=== PATIENT | female | born 1995 | race Caucasian/White ===

== ENCOUNTER 2017-03-06 09:20 | Emergency (ER) | payer BC ==
[2017-03-06] MEDS ORDERED: NS 0.9% 1000 ML* 1,000 ML IV ONE (09:58)
[2017-03-06] MEDS ORDERED: Ketorolac INJ* 30 MG/ML 1 ML VIAL IV PUSH ONE (09:58)
--- NOTE | 2017-03-06 10:03 | ED ---
Abdominal Pain/Female - HPI Summary HPI Summary: 21F presents with pelvic pain today that caused her to pass out. She states she woke up and went to the bathroom and started to have extreme suprapelvic pain. She has never had this pain before. She denies any dysuria, hematuria flank pain , vaginal discharge. When asked if she is she states she is unsure. Her last menstrual period was last month. She denies any nausea, vomiting, diarrhea. She states she felt lightheaded and was in a lot of pain so she states she laid down on the floor and that her fiance shook her awake as she passed out. She also states she has a history of unintentional weight lost over the past couple months and has lost 50 pounds. - History of Current Complaint Chief Complaint: EDAbdPain Stated Complaint: PELVIC PAIN/SYNCOPE Time Seen by Provider: 03/06/17 09:42 Pain Intensity: 5 Allergies/Adverse Reactions: Allergies Allergy/AdvReac Type Severity Reaction Status Date / Time No Known Allergies Allergy Verified 03/06/17 10:42 PMH/Surg Hx/FS Hx/Imm Hx Endocrine/Hematology History: Denies: Hx Thyroid Disease Cardiovascular History: Denies: Hx Hypertension Infectious Disease History: Denies: Traveled Outside the [place] in Last 30 Days - Family History Known Family History: Positive: Other - ovarian CA - Social History Alcohol Use: None Substance Use Type: Reports: None Smoking Status (MU): Never Smoked Tobacco Review of Systems Negative: Fever Negative: Chest Pain Negative: Shortness Of Breath Positive: Abdominal Pain - pelvic. Negative: Vomiting, Diarrhea, Nausea Negative: dysuria, flank pain All Other Systems Reviewed And Are Negative: Yes Physical Exam Triage Information Reviewed: Yes Vital Signs On Initial Exam: Initial Vitals Temp Pulse Resp BP Pulse Ox 97.9 F 76 16 126/69 100 03/06/17 09:35 03/06/17 09:35 03/06/17 09:35 03/06/17 09:35 03/06/17 09:35 Vital Signs Reviewed: Yes Appearance: Positive: Well-Appearing Skin: Positive: Warm, Dry Head/Face: Positive: Normal Head/Face Inspection Eyes: Positive: Normal, Conjunctiva Clear Respiratory/Lung Sounds: Positive: Clear to Auscultation, Breath Sounds Present Cardiovascular: Positive: Normal, RRR Abdomen Description: Positive: Soft, Other: - moderate suprapublic pain, no rebound pain Bowel Sounds: Positive: Present - [place] Coma Scale Coma Scale Total: 15 Diagnostics - Vital Signs Vital Signs Temp Pulse Resp BP Pulse Ox 03/06/17 09:55 65 100 03/06/17 09:52 107/79 03/06/17 09:48 98.7 F 65 18 107/79 100 03/06/17 09:35 97.9 F 76 16 126/69 100 - Laboratory Result Diagrams: 03/06/17 10:10 03/06/17 10:10 Lab Statement: Any lab studies that have been ordered have been reviewed, and results considered in the medical decision making process. - Ultrasound No standard instances Ultrasound Interpretation: Positive (See Comments) - IMPRESSION: Enlarged right ovary with a complex right ovarian cyst measuring up to 3.0 x 1.8 x 2.4 cm. Myomatous changes of the uterus are noted. Ultrasound Interpretation Completed By: Radiologist - EKG No standard instances Cardiac Rate: NL EKG Rhythm: Sinus Rhythm EKG Interpretation: normal sinus rhythm Abdominal Pain Fem Course/Dx - Course Course Of Treatment: 21F presents with pelvic pain today that start all of a sudden this morning. Never had this pain before. denies any vaginal discharge, dysuria, hematuria. denies any history of STDs. no n/v/d. states pain caused her to pass out but she was already on the floor at the time the occurance due to the pain. She states she also felt sweaty at the time. She took dose of advil this morning and states helped with pain. also history of unintentional weight lost this month. denies any fevers. on exam moderate tenderness to suprapubic region. labs: wbc: 11.3, crp 8, hcg <.6. got u/s: enlarged right ovary with complex right ovarian cyst, myomatous changes of uterus. ekg normal. u/s normal. explained syncope likely due to vasovagal due to pain. explained has ovarian cyst and to follow up with obgyn. patient understands and agrees with plan. - Diagnoses Differential Diagnosis: Positive: Ovarian Cyst, Urinary Tract Infection, Other - ovarian torison Provider Diagnoses: Ovarian cyst, Syncope Discharge - Discharge Plan Condition: Good Disposition: HOME Patient Education Materials: Ovarian Cyst (ED) Referrals: Vladislav Mauro MD [Medical Doctor] - Chucho Leroy MD [Primary Care Provider] - Additional Instructions: Take Tylenol or ibuprofen every 6 hours for pain Stand up slowly to prevent passing out Follow up with obgyn Return to ED if develop any new or worsening symptoms
[2017-03-06 10:27] LABS: Hematocrit 46 % (35-47); Hemoglobin 15.1 g/dl (12.0-16.0); Mean Corpuscular HGB Conc 33 g/dl (31-36); Mean Corpuscular Hemoglobin 27 pg (27-31); Mean Corpuscular Volume 83 fL (80-97); Mean Platelet Volume 8 um3 (7.4-10.4); Red Blood Count 5.54 10^6/ul (4.0-5.4); Red Cell Distribution Width 14 % (10.5-15); White Blood Count 11.3 10^3/ul (3.5-10.8)
[2017-03-06 10:59] LABS: TSH (Thyroid Stimulating Horm) 1.24 mcIU/mL (0.34-5.60)
[2017-03-06 11:00] LABS: ALT 24 U/L (7-52); AST 17 U/L (13-39); Albumin 4.6 g/dL (3.2-5.2); Alkaline Phosphatase 58 U/L (34-104); Anion Gap 6 mmol/L (2-11); BUN/Creatinine Ratio 11.1 (8-20); Blood Urea Nitrogen 8 mg/dL (6-24); CO2 Carbon Dioxide 27 mmol/L (22-32); Calcium 9.6 mg/dL (8.6-10.3); Chloride 101 mmol/L (101-111); EGFR African American 134.2 (>60); EGFR Non-African American 104.3 (>60); Globulin 3.3 g/dL (2-4); Glucose 96 mg/dL (70-100); Lipase 17 U/L (11.0-82.0); Potassium 4.1 mmol/L (3.5-5.0); Sodium 134 mmol/L (133-145); Total Protein 7.9 g/dL (6.4-8.9)
--- NOTE | 2017-03-06 11:48 | RAD ---
Indication: Pelvic pain. Real-time sonography of the pelvis was performed. The study was performed utilizing endovaginal technique. The uterus measures 6.3 cm in length x 3.1 cm AP x 4.2 cm in width. The endometrial echo measures 5.5 cm. The anterior body of the uterus appears to BE heterogeneous consistent with myomatous changes although no discrete myomas are identified. The right ovary measures 5.4 x 2.6 x 4.5 cm. Right ovarian cyst measures 3.0 x 1.8 x 2.4 cm. The left ovary measures 3.5 x 2.1 x 3.2 cm. There is a left ovarian cyst measuring 2.1 x 1.9 x 2.3 cm. Doppler interrogation demonstrates flow in both ovaries. Moderate amount of free fluid is noted. IMPRESSION: Enlarged right ovary with a complex right ovarian cyst measuring up to 3.0 x 1.8 x 2.4 cm. Myomatous changes of the uterus are noted.
[2017-03-06] MEDS ORDERED: oxyCODONE/Acetamin 5/325 MG* TAB PO ONE (11:50)
[2017-03-06 11:58] VITALS: BP 120/75
[2017-03-06 12:35] LABS: Urine Bilirubin Negative (Negative); Urine Glucose Negative (Negative); Urine Nitrite Negative (Negative)
== END 2017-03-06 12:54 | disposition home or self-care (01) ==
LOC: ED 09:20
DX: N83.202 Unspecified ovarian cyst, left side (principal); N83.201 Unspecified ovarian cyst, right side; R55 Syncope and collapse; R63.4 Abnormal weight loss
CPT/HCPCS: 36415; 76830; 80053; 81003; 83690; 84443; 84702; 85025; 86141; 93005; 96360; 96374; 99283; A9270-GY; J1885

== ENCOUNTER 2017-04-02 09:15 | Emergency (ER) | payer BC ==
[2017-04-02 09:28] VITALS: BP 128/79
[2017-04-02] MEDS ORDERED: Fluorescein Sodium TOPICAL* 1 MG TEST OPHTHALMIC ONE (09:36)
[2017-04-02] MEDS ORDERED: Tetracaine 0.5% OPTH.SOL 4 ML* 1 DROP BTL BOTH EYES ONE (09:36)
[2017-04-02] MEDS ORDERED: Eye Irrigation Solution 30 ML BOTTLE RIGHT EYE ONE (09:36)
--- NOTE | 2017-04-02 10:29 | UC ---
Eye Complaint HPI - HPI Summary HPI Summary: Significant R eye pain and light sensitivity since yesterday, wears contacts but they are only fpc through their life. Has never slept in contacts, no recent grinding, welding, or overhead work. Denies fever or FB sensation. Lots of pain and tearing with focusing and light. No hx of eye surgery. - History of Current Complaint Chief Complaint: UCEye Stated Complaint: EYE COMPLAINT Time Seen by Provider: 04/02/17 10:03 Hx Obtained From: Patient Hx Last Menstrual Period: 02/2017 ?: No Onset/Duration: Gradual Onset, Lasting Hours Timing: Constant Severity Initially: Mild Severity Currently: Severe Location of Injury: Other Character: Dull Aggravating Factor(s): Light Alleviating Factor(s): Darkness Associated Signs And Symptoms: Positive: Drainage (Clear) - Risk Factors Penetrating Injury Risk Factor: Negative - Allergies/Home Medications Allergies/Adverse Reactions: Allergies Allergy/AdvReac Type Severity Reaction Status Date / Time No Known Allergies Allergy Verified 04/02/17 09:27 Home Medications: Home Medications NK [No Home Medications Reported] 04/02/17 [History Confirmed 04/02/17] PMH/Surg Hx/FS Hx/Imm Hx Endocrine History Of: Denies: Thyroid Disease Cardiovascular History Of: Denies: Hypertension - Surgical History Surgical History: None - Family History Known Family History: Positive: Other - ovarian CA - Social History Lives: Alone Alcohol Use: None Substance Use Type: None Smoking Status (MU): Never Smoked Tobacco Review of Systems Constitutional: Negative Skin: Negative Eyes: Drainage, Eye Redness, Photophobia ENT: Negative Respiratory: Negative Cardiovascular: Negative Gastrointestinal: Negative Genitourinary: Negative Motor: Negative Neurovascular: Negative Musculoskeletal: Negative Neurological: Negative Psychological: Negative All Other Systems Reviewed And Are Negative: Yes Physical Exam Triage Information Reviewed: Yes Appearance: Well-Appearing, Well-Nourished, Pain Distress Vital Signs: Initial Vital Signs Temp 97.9 F 04/02/17 09:20 Pulse 67 04/02/17 09:20 Resp 14 04/02/17 09:20 BP 128/79 04/02/17 09:20 Pulse Ox 100 04/02/17 09:20 Eye Exam: Other - R pupil reactive to light but with significant pain Eyes: Positive: Conjunctiva Inflamed - R ENT: Positive: Normal ENT inspection, Hearing grossly normal, Pharynx normal, Nasal drainage. Negative: Tonsillar swelling, Tonsillar exudate Dental Exam: Normal Neck exam: Normal Neck: Positive: Supple, Nontender, No Lymphadenopathy Respiratory Exam: Normal Respiratory: Positive: Chest non-tender, Lungs clear, Normal breath sounds, No respiratory distress, No accessory muscle use Cardiovascular Exam: Normal Cardiovascular: Positive: RRR, No Murmur Musculoskeletal Exam: Normal Neurological Exam: Normal Neurological: Positive: Alert Psychological Exam: Normal Skin Exam: Normal Eye Complaint Course/Dx - Differential Dx/Diagnosis Provider Diagnoses: R eye photophobia. R eye pain Discharge - Discharge Plan Condition: Stable Disposition: HOME Patient Education Materials: Photophobia (ED) Forms: *Work Release Referrals: Chucho Bill MD [Medical Doctor] - As Soon As Possible Chucho Leroy MD [Primary Care Provider] - 2 Weeks Additional Instructions: As we discussed, your eye symptoms need more in-depth testing with an cloud engineer today. Please follow up with Dr. Bill's office.
== END 2017-04-02 10:38 | disposition home or self-care (01) ==
LOC: UCEAST 09:15
DX: H53.141 Visual discomfort, right eye (principal); H57.11 Ocular pain, right eye
CPT/HCPCS: 99212; A9270-GY; G0463

== ENCOUNTER → 2017-08-25 14:54 | Emergency (ER) | payer BC ==
[~2017-08-25 14:54] MED LIST: Ibuprofen TAB* 400 MG PO ONE; Sulfamethox/Trimethoprim DS 800/160* TAB PO ONE
[2017-08-25 15:05] VITALS: BP 121/74
[2017-08-25 16:20] LABS: Hematocrit 41 % (35-47); Mean Corpuscular HGB Conc 34 g/dl (31-36); Mean Corpuscular Hemoglobin 28 pg (27-31); Mean Corpuscular Volume 82 fL (80-97); Mean Platelet Volume 7 um3 (7.4-10.4); Red Blood Count 4.98 10^6/ul (4.0-5.4); Red Cell Distribution Width 13 % (10.5-15); White Blood Count 16.1 10^3/ul (3.5-10.8)
[2017-08-25 16:32] LABS: ALT 13 U/L (7-52); AST 14 U/L (13-39); Albumin 4.4 g/dL (3.2-5.2); Alkaline Phosphatase 55 U/L (34-104); Anion Gap 9 mmol/L (2-11); BUN/Creatinine Ratio 12.9 (8-20); Blood Urea Nitrogen 11 mg/dL (6-24); CO2 Carbon Dioxide 23 mmol/L (22-32); Calcium 9.5 mg/dL (8.6-10.3); Chloride 104 mmol/L (101-111); EGFR African American 109.7 (>60); EGFR Non-African American 85.3 (>60); Globulin 3.1 g/dL (2-4); Glucose 102 mg/dL (70-100); Potassium 3.3 mmol/L (3.5-5.0); Sodium 136 mmol/L (133-145); Total Protein 7.5 g/dL (6.4-8.9)
[2017-08-25 17:05] LABS: TSH (Thyroid Stimulating Horm) 1.23 mcIU/mL (0.34-5.60)
--- NOTE | 2017-08-25 17:23 | RAD ---
HISTORY: Head injury COMPARISONS: None TECHNIQUE: Multiple contiguous axial CT scans were obtained of the head without intravenous contrast. FINDINGS: HEMORRHAGE/INFARCT: There is no hemorrhage or acute infarct. MASSES/SHIFT: There is no mass or shift. EXTRA-AXIAL SPACES: There are no extra-axial fluid collections. SULCI AND VENTRICLES: The sulci and ventricles are normal in size and position for the patient's stated age. CEREBRUM: There are no focal parenchymal abnormalities. BRAINSTEM: There are no focal parenchymal abnormalities. CEREBELLUM: There are no focal parenchymal abnormalities. VESSELS: The vessels are grossly normal. PARANASAL SINUSES: The paranasal sinuses are clear. ORBITS: The orbits are unremarkable. BONES AND SOFT TISSUE: No bone or soft tissue abnormalities are noted. OTHER: None IMPRESSION: NO ACUTE INTRACRANIAL PATHOLOGY.
[2017-08-25 18:13] LABS: Urine Bacteria 1+ (Absent); Urine Bilirubin Negative (Negative); Urine Glucose Negative (Negative); Urine Nitrite Negative (Negative)
--- NOTE | 2017-08-31 12:35 | ED ---
Nela Campa SooYoung, scribed for Tom Retana MD on 08/25/17 at 1542 . Syncope/Near Syncope - HPI Summary HPI Summary: A 22 y/o F presents to ED BIBA after syncopal episode. Pt was waiting in line at the [employer] stand when she suddenly said "something's wrong" to her fiance and proceeded to pass out. Per fiance, she was stiff as a board, her head hit the ground hard, and her eyes rolled back into her head. Associated sx : JOHNSON, posterior head trauma, mild nausea. Denies neck pain, abd pain, rash, SOB , CP, v/d. Denies recent stress or excess stimuli. Pt not on BC. - History Of Current Complaint Chief Complaint: EDSyncope Hx Obtained From: Patient, Family/Surgical First Assistant Onset/Duration: Sudden Onset, Resolved Timing: Frequency Of Episodes - 1x Context: Witnessed Activity At Onset: At Rest Associated Head Trauma: Yes Associated Signs And Symptoms: Headache, Other - pos: nausea - Allergies/Home Medications Allergies/Adverse Reactions: Allergies Allergy/AdvReac Type Severity Reaction Status Date / Time No Known Allergies Allergy Verified 04/02/17 09:27 PMH/Surg Hx/FS Hx/Imm Hx Previously Healthy: Yes Endocrine/Hematology History: Denies: Hx Thyroid Disease Cardiovascular History: Denies: Hx Hypertension Infectious Disease History: Yes Infectious Disease History: Denies: Traveled Outside the [place] in Last 30 Days - Family History Known Family History: Positive: Cardiac Disease, Other - ovarian CA - Social History Occupation: Student Lives: Alone Alcohol Use: None Hx Substance Use: No Substance Use Type: Reports: None Hx Tobacco Use: No Smoking Status (MU): Never Smoked Tobacco Review of Systems Negative: Fever, Chills Negative: Erythema Negative: Sore Throat Negative: Chest Pain Negative: Shortness Of Breath, Cough Positive: Nausea. Negative: Abdominal Pain, Vomiting Negative: dysuria, hematuria Negative: Myalgia, Edema Neurological: Other - pos: head trauma; neg: dizziness Positive: Headache, Syncope All Other Systems Reviewed And Are Negative: Yes Physical Exam - Summary Physical Exam Summary: Constitutional: Well-developed, Well-nourished, Alert. (-) Distressed Skin: Warm, Dry HENT: Scalp hematoma on L occipital, parietal Eyes: Conjunctiva normal Neck: Musculoskeletal ROM normal neck. (-) JVD, (-) Stridor, (-) Tracheal deviation Cardio: Rhythm regular, rate normal, Heart sounds normal; Intact distal pulses; The pedal pulses are 2+ and symmetric. Radial pulses are 2+ and symmetric. (-) Murmur Pulmonary/Chest wall: Effort normal. (-) Respiratory distress, (-) Wheezes, (-) Rales Abd: Soft, (-) Tenderness, (-) Distension, (-) Guarding, (-) Rebound Musculoskeletal: (-) Edema Lymph: (-) Cervical adenopathy Neuro: Alert, Oriented x3 Psych: Mood and affect Normal Triage Information Reviewed: Yes Vital Signs On Initial Exam: Initial Vitals Temp Pulse Resp BP Pulse Ox 98 F 96 18 121/74 98 08/25/17 15:00 08/25/17 15:00 08/25/17 15:00 08/25/17 15:00 08/25/17 15:00 Vital Signs Reviewed: Yes - [place] Coma Scale Coma Scale Total: 15 Diagnostics - Vital Signs Vital Signs Temp Pulse Resp BP Pulse Ox 08/25/17 15:39 97 08/25/17 15:32 89 94 08/25/17 15:00 98 F 96 18 121/74 98 - Laboratory Result Diagrams: 08/25/17 16:00 08/25/17 16:00 Lab Statement: Any lab studies that have been ordered have been reviewed, and results considered in the medical decision making process. - CT BRAIN CT CT Interpretation: No Acute Changes - IMPRESSION: No acute intracranial pathology. ED physician has reviewed this radiology report and agrees. CT Interpretation Completed By: Radiologist - EKG 1543 Cardiac Rate: Tachycardia - 102bpm EKG Rhythm: Sinus Tachycardia ST Segment: Normal - no STEMI Re-Evaluation - Re-Evaluation 1 Re-Evaluation Time: 18:22 Change: Improved Comment: Discussing plans to dispo. Pt agrees, voiced understanding. Course/Dx Course Of Treatment: A 22 y/o F presents to ED BIBA after syncopal episode. Pt was waiting in line at the [employer] stand when she suddenly said "something' s wrong" to her fiance and proceeded to pass out. Per fiance, she was stiff as a board, her head hit the ground hard, and her eyes rolled back into her head. Associated sx: JOHNSON, posterior head trauma, mild nausea. Denies neck pain, abd pain, rash, SOB, CP, v/d. Denies recent stress or excess stimuli. Pt not on BC. Bloodwork is without significant abnormalities. Brain CT is negative. UA results are positive for infection. Pt tolerated PO challenge, and is feeling better. Will D/C home with bactrim, f/u with PCP. - Diagnoses Provider Diagnoses: Syncope, UTI (urinary tract infection), Scalp hematoma Discharge - Discharge Plan Condition: Stable Disposition: HOME Prescriptions: Sulfamethox/Trimethoprim DS* [Bactrim DS 800/160 TAB*] 1 tab PO BID #14 tab Patient Education Materials: Sulfamethoxazole/Trimethoprim (By mouth), Syncope (ED), Urinary Tract Infection in Women (ED), Contusion in Adults (ED) Referrals: Chucho Leroy MD [Primary Care Provider] - 2 Days Additional Instructions: Follow up with your primary care provider in 2 to 3 days. Please return to the ED if you experience new or worsening symptoms. The documentation as recorded by the Nela gonzalez SooYoung accurately reflects the service I personally performed and the decisions made by , Tom Retana MD.
== END | disposition home or self-care (01) ==
LOC: ED 14:54
DX: R55 Syncope and collapse (principal); N39.0 Urinary tract infection, site not specified; S00.03XA Contusion of scalp, initial encounter; W19.XXXA Unspecified fall, initial encounter; Y92.9 Unspecified place or not applicable
CPT/HCPCS: 36415; 70450; 80053; 81003; 81015; 83605; 83735; 84443; 84702; 85025; 87086; 93005; 99282; A9270-GY

== ENCOUNTER 2018-01-07 11:58 | Emergency (ER) | payer BC ==
[2018-01-07 12:18] VITALS: BP 122/81
--- NOTE | 2018-01-07 12:29 | UC ---
Dental HPI - HPI Summary HPI Summary: 22F presents with dental pain for past couple days. She has an appointment with her dentist in a week. She denies any fever. She denies any pain or swelling around eyes. She denies any chest pain or SOB. Her dentist told her to come here as may need antibiotics as can not get her any sooner. She has been taking Tylenol and ibuprofen for pain without relief. pain is 8/10. - History of Current Complaint Chief Complaint: UCDentalProblem Stated Complaint: DENTAL COMPLAINT Time Seen by Provider: 01/07/18 12:19 Hx Last Menstrual Period: 12/25/17 Pain Intensity: 9 - Allergies/Home Medications Allergies/Adverse Reactions: Allergies Allergy/AdvReac Type Severity Reaction Status Date / Time No Known Allergies Allergy Verified 01/07/18 12:18 PMH/Surg Hx/FS Hx/Imm Hx Endocrine History: Other Other Endocrine History: no DM Cardiovascular History: Other Other Cardiovascular History: no HTN - Surgical History Surgical History: None Surgery Procedure, Year, and Place: denies - Family History Known Family History: Positive: Cardiac Disease, Other - ovarian CA - Social History Alcohol Use: None Substance Use Type: None Smoking Status (MU): Never Smoked Tobacco Review of Systems Constitutional: Negative ENT: Dental Pain Respiratory: Negative Cardiovascular: Negative All Other Systems Reviewed And Are Negative: Yes Physical Exam Triage Information Reviewed: Yes Appearance: Well-Appearing Vital Signs: Initial Vital Signs Temp 98.4 F 01/07/18 12:13 Pulse 68 01/07/18 12:13 Resp 16 01/07/18 12:13 BP 122/81 01/07/18 12:13 Pulse Ox 100 01/07/18 12:13 Eye Exam: Normal ENT: Positive: Normal ENT inspection, Pharynx normal, TMs normal Dental: Positive: Percussion Tenderness @ - 7. Negative: Gross Decay/Caries @, Dental Fracture @, Abscess @ Neck: Positive: Supple, Nontender, No Lymphadenopathy Respiratory: Positive: Lungs clear, Normal breath sounds Cardiovascular: Positive: RRR Abdomen Description: Positive: Nontender, Soft Bowel Sounds: Positive: Present Musculoskeletal Exam: Normal Neurological Exam: Normal Psychological Exam: Normal Skin Exam: Normal Dental Complaint Course/Dx - Course Course Of Treatment: 22F presents with dental pain for past couple days. She has an appointment with her dentist in a week. She denies any fever. She denies any pain or swelling around eyes. She denies any chest pain or SOB. Her dentist told her to come here as may need antibiotics as can not get her any sooner. She has been taking Tylenol and ibuprofen for pain without relief. pain is 8/10. on exam has percussion tenderness tooth 7, no abscess felt. will place on PCN. will give short course of pain medication. patient understand and agrees with plan. - Differential Dx/Diagnosis Differential Diagnosis/Dx: Dental Abscess, Dental Caries, Fractured Tooth, Gingivitis Provider Diagnoses: dental infection Discharge - Discharge Plan Condition: Good Disposition: HOME Prescriptions: oxyCODONE/Acetamin 5/325 MG* [Percocet 5/325 TAB*] 1 tab PO Q6H PRN #8 tab MDD 4 PRN Reason: Pain Penicillin VK TAB* [Penicillin VK 250 mg Tab*] 500 mg PO QID #28 tab Patient Education Materials: Toothache (ED) Referrals: Chucho Leroy MD [Primary Care Provider] - Additional Instructions: Take antibiotics: 4 times a day for 7 days Use ibuprofen every 6 hours and narcotic for break through pain at night every 6 hours Avoid hard, crunchy food until seen by dentist Follow up with dentist as soon as possible Return to ED if develop fever, shortness of breath, pain with eye movement or swelling around eye Images Dental: 1 - pain
== END 2018-01-07 12:38 | disposition home or self-care (01) ==
LOC: UCEAST 11:58
DX: K04.7 Periapical abscess without sinus (principal)
CPT/HCPCS: 99212; G0463

== ENCOUNTER 2018-01-30 15:47 | Emergency (ER) | payer BC ==
[2018-01-30 16:00] VITALS: BP 139/87
[2018-01-30] MEDS ORDERED: Ondansetron ODT TAB* 4 MG PO ONE (16:04)
--- NOTE | 2018-01-30 16:05 | ED ---
Influenza-Like Illness - HPI Summary HPI Summary: 22-year-old female presents with cough for the past week. She admits to sinus congestion that started 4 days ago. She states the congestion feels like a pressure. She denies any sore throat. She admits to shortness of breath and chest tightness when she coughs. She admits to generalized abdominal pain nausea vomiting diarrhea. She denies any fevers. She states she has not been able to keep anything down. He states he feels dehydrated. She has no medical conditions. No one else is sick. She has been trying Tylenol for her symptoms without relief. - History of Current Complaint Chief Complaint: UCRespiratory Time Seen by Provider: 01/30/18 15:56 - Allergy/Home Medications Allergies/Adverse Reactions: Allergies Allergy/AdvReac Type Severity Reaction Status Date / Time No Known Allergies Allergy Verified 01/30/18 15:53 Home Medications: Home Medications Acetaminophen [Tylenol Extra Strength] 500 mg PO Q8HR PRN 01/30/18 [History Confirmed 01/30/18] PMH/Surg Hx/FS Hx/Imm Hx Endocrine/Hematology History: Denies: Hx Diabetes, Hx Thyroid Disease Cardiovascular History: Denies: Hx Hypertension Respiratory History: Denies: Hx Asthma, Hx Chronic Obstructive Pulmonary Disease (COPD) GI History: Denies: Hx Ulcer - Surgical History Surgery Procedure, Year, and Place: denies Infectious Disease History: No Infectious Disease History: Denies: Hx Hepatitis, Hx Human Immunodeficiency Virus (HIV), Traveled Outside the [place] in Last 30 Days - Family History Known Family History: Positive: Cardiac Disease, Other - ovarian CA - Social History Alcohol Use: None Hx Substance Use: No Substance Use Type: Reports: None Hx Tobacco Use: No Smoking Status (MU): Never Smoked Tobacco Review of Systems Negative: Fever Positive: Chest Pain - with cough Positive: Shortness Of Breath - with cough, Cough Positive: Abdominal Pain, Vomiting, Diarrhea, Nausea All Other Systems Reviewed And Are Negative: Yes Physical Exam Triage Information Reviewed: Yes Vital Signs On Initial Exam: Initial Vitals Temp Pulse Resp BP Pulse Ox 97.9 F 109 18 139/87 99 01/30/18 15:55 01/30/18 15:55 01/30/18 15:55 01/30/18 15:55 01/30/18 15:55 Vital Signs Reviewed: Yes Appearance: Positive: Ill-Appearing Skin: Positive: Warm, Dry Head/Face: Positive: Normal Head/Face Inspection Eyes: Positive: Normal, EOMI, KEENAN, Conjunctiva Clear ENT: Positive: Normal ENT inspection, Pharynx normal, TMs normal, Sinus tenderness Neck: Positive: Supple, Nontender, No Lymphadenopathy Respiratory/Lung Sounds: Positive: Clear to Auscultation, Breath Sounds Present Cardiovascular: Positive: Normal, RRR Abdomen Description: Positive: Soft, Other: - mild diffuse tenderness Bowel Sounds: Positive: Present Musculoskeletal: Positive: Normal Neurological: Positive: Normal Psychiatric: Positive: Normal Diagnostics - Vital Signs Vital Signs Temp Pulse Resp BP Pulse Ox 01/30/18 15:55 97.9 F 109 18 139/87 99 - Laboratory Lab Statement: Any lab studies that have been ordered have been reviewed, and results considered in the medical decision making process. Re-Evaluation - Re-Evaluation First Eval Re-Evaluation Time: 16:44 Change: Improved Comment: feeling less nauseous with zofrna Flu Symptom Course/Dx - Course Course Of Treatment: 22-year-old female presents with cough for the past week. She admits to sinus congestion that started 4 days ago. She states the congestion feels like a pressure. She denies any sore throat. She admits to shortness of breath and chest tightness when she coughs. She admits to generalized abdominal pain nausea vomiting diarrhea. She denies any fevers. She states she has not been able to keep anything down. He states he feels dehydrated. She has no medical conditions. No one else is sick. She has been trying Tylenol for her symptoms without relief. on exam lungs CTA. mild diffuse tenderness abdomen. due to sinus congestion only being for 4 days likely still viral. flu neg. will treat with flonase, inhaler and zofran for symptomatic relief. will have follow up with primary about blood pressure as is elevated at this time. patient understand and agrees with plan. - Diagnoses Differential Diagnosis/HQI/PQRI: Positive: Influenza, Pneumonia, Upper Respiratory Infection Provider Diagnoses: Upper respiratory infection Discharge - Discharge Plan Condition: Good Disposition: HOME Prescriptions: Albuterol HFA INHALER* [Ventolin HFA Inhaler*] 1 puff INH Q6H PRN #1 mdi PRN Reason: Cough Fluticasone NASAL SPRAY 50MCG* [Flonase NASAL SPRAY 50MCG*] 2 spray BOTH NARES DAILY #1 btl Ondansetron ODT TAB* [Zofran 4 MG Odt TAB*] 4 mg PO Q6H PRN #20 tab.odt PRN Reason: Nausea Patient Education Materials: Upper Respiratory Infection (ED) Referrals: Chucho Leroy MD [Primary Care Provider] - Additional Instructions: Alternate Tylenol and ibuprofen every 6 hours Take zofran (dissolve under tongue) up two tablets every 6 hours as need nausea Encourage to drink and follow BRAT diet when would like to eat: bananas, rice, applesauce, toast' Take flonase two puff every 6 hours for cough Take inhaler every 6 hours for cough Use saline rinses in nose Follow up with primary within 5 days Return to ED if develop any new or worsening symptoms
== END 2018-01-30 16:45 | disposition home or self-care (01) ==
LOC: UCEAST 15:47
DX: J06.9 Acute upper respiratory infection, unspecified (principal)
CPT/HCPCS: 87502; 99212; A9270-GY; G0463

== ENCOUNTER 2018-05-27 13:36 | Emergency (ER) | payer BC ==
[2018-05-27 14:04] VITALS: BP 141/93
--- NOTE | 2018-05-27 15:07 | UC ---
Complaint Female HPI - HPI Summary HPI Summary: 22 yo female presents with urinary burning, frequency, and urgency. She tells me that 3 days ago her UTI symptoms developed. She has had many UTIs in the past and this feels the same, however, she also complains of vaginal irritation and pain after intercourse over the last week. She denies fever, chills, abdominal pain, n/v/d/c, or flank pain. No concerns for STDs. - History Of Current Complaint Hx Obtained From: Patient Hx Last Menstrual Period: 05/30/18 Onset/Duration: Gradual Onset Severity Initially: Moderate Severity Currently: Moderate Pain Intensity: 5 Pain Scale Used: 0-10 Numeric <Stu Martin - Last Filed: 05/27/18 17:31> <Latonia David - Last Filed: 05/27/18 17:40> - History Of Current Complaint Chief Complaint: UCGU Stated Complaint: UTI Time Seen by Provider: 05/27/18 14:21 - Allergies/Home Medications Allergies/Adverse Reactions: Allergies Allergy/AdvReac Type Severity Reaction Status Date / Time No Known Allergies Allergy Verified 05/27/18 14:04 Home Medications: Home Medications LORazepam [Ativan 0.5 MG TAB] 1 tab PO BID 05/27/18 [History Confirmed 05/27/18] buPROPion TAB* [Wellbutrin TAB*] 1 tab PO BID 05/27/18 [History Confirmed ] PMH/Surg Hx/FS Hx/Imm Hx Previously Healthy: Yes Psychological History: Anxiety, Depression - Surgical History Surgical History: None Surgery Procedure, Year, and Place: denies - Family History Known Family History: Positive: Cardiac Disease, Other - ovarian CA - Social History Occupation: Student Lives: With Family Alcohol Use: None Substance Use Type: None Smoking Status (MU): Never Smoked Tobacco <Stu Martin - Last Filed: 05/27/18 17:31> Review of Systems Constitutional: Negative Skin: Negative Respiratory: Negative Cardiovascular: Negative Gastrointestinal: Negative Genitourinary: Dysuria, Frequency, Urgency, Vaginal/Penile Itching, Vaginal/ Penile Pain Neurovascular: Negative Neurological: Negative Psychological: Negative All Other Systems Reviewed And Are Negative: Yes <Stu Martin - Last Filed: 07/09/18 17:31> Physical Exam - Summary Physical Exam Summary: GENERAL: NAD. WDWN. No pain distress. SKIN: No rashes, sores, lesions, or open wounds. NECK: Supple. Nontender. No lymphadenopathy. CHEST: CTAB. No r/r/w. No accessory muscle use. Breathing comfortably and in no distress. CV: RRR. Without m/r/g. Pulses intact. Brisk cap refill. ABDOMEN: Soft. NTTP. No distention or guarding. No organomegaly. No CVA tenderness. Bowel sounds present NEURO: Alert. PSYCH: Age appropriate behavior. Triage Information Reviewed: Yes Vital Signs: Initial Vital Signs Temp 99.4 F 05/27/18 14:00 Pulse 86 05/27/18 14:00 Resp 12 05/27/18 14:00 BP 141/93 05/27/18 14:00 Pulse Ox 100 05/27/18 14:00 Laboratory Tests 05/27/18 05/27/18 14:34 14:50 POC Urine Color Yellow POC Urine Clarity Clear POC Urine pH 6.0 POC Ur Specif [place] <= 1.005 L POC Urine Protein Negative POC Ur Glucose (UA) Negative POC Urine Ketones Negative POC Urine Blood Negative POC Urine Nitrite Negative POC Urine Bilirubin Negative POC Urine Urobilinogen 0.2 POC U Leukocyte Esteras Negative POC Ur Test Negative <Stu Martin - Last Filed: 05/27/18 17:31> - Summary Physical Exam Summary: Pelvic: I was funds development director by Nurse Margie. External genitalia within normal limits. B/L labia majora w/ mild erythema. Speculum exam: The vaginal lake are within normal limits w/ mild creamy white vaginal discharge, no lesions or rashes. The cervix is closed with no lesions or masses. There is no CMT's, and no adnexal masses. Sample sent to Lab for Affirm panel. Rectal: No lesions, no hemorrhoids observed. Triage Information Reviewed: Yes Vital Signs: Initial Vital Signs Temp 99.4 F 05/27/18 14:00 Pulse 86 05/27/18 14:00 Resp 12 05/27/18 14:00 BP 141/93 05/27/18 14:00 Pulse Ox 100 05/27/18 14:00 <Latonia David - Last Filed: 05/27/18 17:40> Complaint Female Dx - Course Course Of Treatment: Pt preferred to have a pelvic exam performed by a female provider. Latonia PALACIO performed the pelvic exam only and her findings were documented by her as above. UA negative for infection. Suspect BV - will treat with Flagyl and send affirm for culture. Advised pt to f/u if symptoms persist or worsen. - Differential Dx/Diagnosis Provider Diagnoses: Bacterial vaginosis <Stu Martin - Last Filed: 05/27/18 17:31> Discharge - Sign-Out/Discharge Documenting (check all that apply): Discharge/Admit/Transfer - Billing Disposition and Condition Condition: STABLE Disposition: Home <Stu Martin - Last Filed: 05/27/18 17:31> - Billing Disposition and Condition Condition: STABLE Disposition: Home <Latonia David - Last Filed: 05/27/18 17:40> - Discharge Plan Condition: Stable Disposition: HOME Prescriptions: metroNIDAZOLE [Flagyl 500 MG TAB] 500 mg PO BID #14 tab Patient Education Materials: Bacterial Vaginosis (ED) Referrals: Chucho Leroy MD [Primary Care Provider] - Additional Instructions: If you develop a fever, shortness of breath, chest pain, new or worsening symptoms - please call your PCP or go to the ED. Your blood pressure was mildly elevated at todays visit. Please see your primary provider within 4 weeks for recheck and re-evaluation.
== END 2018-05-27 15:20 | disposition home or self-care (01) ==
LOC: UCEAST 13:36
DX: N76.0 Acute vaginitis (principal); B96.89 Other specified bacterial agents as the cause of diseases classified elsewhere
CPT/HCPCS: 81003; 84702; 87480; 87510; 99212; G0463

== ENCOUNTER 2020-01-13 12:10 | Emergency (ER) | payer BC ==
[2020-01-13 12:19] VITALS: BP 135/85
--- NOTE | 2020-01-13 12:42 | UC ---
UC General HPI - HPI Summary HPI Summary: States she has had toe discoloration since october - first started on the right toes - where they turned purple and it comes and goes. Can lasts a few days to a week. Nothing seems to make it better or worse. She noticed a few weeks ago that the left toes started become discolored as well . Can be more sensitive to pain and numb. No fevers. Otherwise well. No FMhx of autoimmune disorder. No ETOH. No drugs. Was drinking energy drinks 2x/day but has since stopped over the past week. Meds: reviewed - History of Current Complaint Chief Complaint: UCLowerExtremity Stated Complaint: TOES PURPLE AND NUMB Time Seen by Provider: 01/13/20 12:22 Hx Last Menstrual Period: 12/08/19 Pain Intensity: 6 - Allergy/Home Medications Allergies/Adverse Reactions: Allergies Allergy/AdvReac Type Severity Reaction Status Date / Time No Known Allergies Allergy Verified 01/13/20 12:19 Home Medications: Home Medications NK [No Home Medications Reported] 01/13/20 [History Confirmed 01/13/20] PMH/Surg Hx/FS Hx/Imm Hx Previously Healthy: Yes - Surgical History Surgical History: None Surgery Procedure, Year, and Place: denies - Family History Known Family History: Positive: Cardiac Disease, Other - ovarian CA - Social History Alcohol Use: None Substance Use Type: None Smoking Status (MU): Never Smoked Tobacco Review of Systems All Other Systems Reviewed And Are Negative: Yes Physical Exam Triage Information Reviewed: Yes Appearance: Well-Appearing Vital Signs: Initial Vital Signs Temp 98.8 F 01/13/20 12:16 Pulse 93 01/13/20 12:16 Resp 16 01/13/20 12:16 BP 135/85 01/13/20 12:16 Pulse Ox 100 01/13/20 12:16 Vital Signs Reviewed: Yes Neck: Positive: Supple Respiratory: Positive: Lungs clear, Normal breath sounds Cardiovascular: Positive: No Murmur, Other: - pronounced S2 Skin: Positive: Other - purple discolored toes b/l, good brisk cap refill. DP pulses present but faint Femoral pulses present Course/Dx - Course Course Of Treatment: This is 24 yr old with b/l discolored toes Pulses present After toes were warmed and elevated discoloration improved and nearly resolved Plan DIscussed this was likely Raynaud's disease Continue to keep your feet warm and to avoid drastic changes in temperature Recommend decreasing caffeine intake Recommend follow up with PCP to discuss if you are candidate for medication - Diagnoses Provider Diagnosis: Raynaud disease Discharge ED - Sign-Out/Discharge Documenting (check all that apply): Patient Departure All imaging exams completed and their final reports reviewed: No Studies - Discharge Plan Condition: Fair Disposition: HOME Referrals: Chucho Leroy MD [Primary Care Provider] - Additional Instructions: DIscussed this was likely Raynaud's disease Continue to keep your feet warm and to avoid drastic changes in temperature Recommend decreasing caffeine intake Recommend follow up with PCP to discuss if you are candidate for medication If symptoms get worse or persist despite keeping feet warm, recommend follow up with PCP or return to urgent care - Billing Disposition and Condition Condition: FAIR Disposition: Home
== END 2020-01-13 13:12 | disposition home or self-care (01) ==
LOC: UCEAST 12:10
DX: I73.00 Raynaud's syndrome without gangrene (principal)
CPT/HCPCS: 99211; G0463